=== PATIENT | female | born 1995 | race Two or more races ===

== ENCOUNTER 2021-08-15 13:51 | Outpatient (CLI) | payer OTHER | END 2021-08-15 14:04 | disposition home or self-care (01) | LOC: RAD 13:51 | PROVIDERS: ATTEND Physical Medicine & Rehabilitation | DX: M25.562 Pain in left knee (principal) ==

== ENCOUNTER 2022-02-12 07:41 | Emergency (ER) | payer OTHER ==
[~2022-02-12] VITALS: Ht 162.6 cm; Wt 68.0 kg
[2022-02-12] MEDS ORDERED: PROAIR HFA8.5 GM (07:52)
[2022-02-12] MEDS ORDERED: ALLERGY RELIEF180 MG (07:52)
[2022-02-12] MEDS ORDERED: BENZONATATE100 MG (07:52)
[2022-02-12] MEDS ORDERED: DOXYCYCLINE HY100 M2 (07:52)
== END 2022-02-12 12:04 | disposition home or self-care (01) ==
LOC: ER 07:41
DX: J40 Bronchitis, not specified as acute or chronic (principal); Z88.2 Allergy status to sulfonamides; Z72.0 Tobacco use

== ENCOUNTER 2023-01-27 14:01 | Emergency (ER) | payer OTHER ==
[~2023-01-27] VITALS: Ht 162.6 cm; Wt 73.9 kg
[~2023-01-27 14:01] MED LIST: ALLERGY RELIEF180 MG; BENZONATATE100 MG; DOXYCYCLINE HY100 M2; PROAIR HFA8.5 GM
[2023-01-27] MEDS ORDERED: CIPRO500 MG PO (19:32)
== END 2023-01-27 19:37 | disposition home or self-care (01) ==
LOC: ER 14:01
DX: N39.0 Urinary tract infection, site not specified (principal); K52.9 Noninfective gastroenteritis and colitis, unspecified; Z88.2 Allergy status to sulfonamides

== ENCOUNTER 2024-10-27 10:30 | Outpatient (CLI) | payer OTHER ==
[~2024-10-27 10:30] MED LIST changes: +CIPRO500 MG PO
== END 2024-10-27 10:38 | disposition home or self-care (01) ==
LOC: RAD 10:30
PROVIDERS: ATTEND Physical Medicine & Rehabilitation
DX: M25.571 Pain in right ankle and joints of right foot (principal)

== ENCOUNTER 2025-01-20 11:04 | Outpatient (CLI) | payer OTHER | END 2025-01-20 11:05 | disposition home or self-care (01) | LOC: RAD 11:04 | PROVIDERS: ATTEND Physical Medicine & Rehabilitation | DX: M25.571 Pain in right ankle and joints of right foot (principal) ==